=== PATIENT | male | born 1970 ===

== ENCOUNTER 2020-05-16 00:01 | Emergency (ER) | payer SELFPAY ==
[~2020-05-16] VITALS: Ht 152.4 cm; Wt 70.0 kg
[2020-05-16] MEDS ORDERED: ONDANSETRON HCL 4MG/2ML INJ IV STA (00:43)
[2020-05-16] MEDS ORDERED: VISCOUS LIDOCAINE 2% 15 ML UDC PO STA (00:43)
[2020-05-16] MEDS ORDERED: MAGNESIUM/ALUMINUM HYDROXIDE/SIMETHICONE 30ML UDC PO STA (00:43)
[2020-05-16] MEDS ORDERED: SODIUM CHLORIDE 0.9% 1,000 ML IV ONE (00:45)
[2020-05-16 00:53] LABS: BASOPHILS % 3.9 % (0.0-2.0); EOSINOPHILS % 5.8 % (0.0-5.0); HEMATOCRIT. 39.9 % (42.0-52.0); HEMOGLOBIN. 13.5 g/dL (14.0-18.0); LYMPHOCYTES % 22.1 % (20.0-50.0); MEAN CORPUSCULAR HEMOGLOBIN 30.1 pg (28.0-32.0); MEAN CORPUSCULAR VOLUME 88.8 fL (80.0-94.0); MONOCYTES % 10.7 % (2.0-8.0); NEUTROPHILS % 57.5 % (40.0-76.0); PLATELET 247 x1000/uL (130-400); RED BLOOD CELL COUNT 4.49 mill/uL (4.7-6.1); RED CELL DISTRIBUTION WIDTH 13.9 % (11.6-14.6)
[2020-05-16 00:59] LABS: PROTHROMBIN TIME 10.3 sec (9.6-11.0)
[2020-05-16 01:05] LABS: CHLORIDE 95 mEq/L (98-107)
[2020-05-16 01:07] LABS: CLARITY URINE CLEAR (CLEAR); COLOR URINE YELLOW (YELLOW); KETONES URINE 1+ (NEGATIVE); LEUKOCYTE ESTERASE URINE NEGATIVE (NEGATIVE); NITRITE URINE NEGATIVE (NEGATIVE); OCCULT BLOOD URINE NEGATIVE (NEGATIVE); PH URINE >=9.0 (4.5-8.0); PROTEIN URINE NEGATIVE (NEGATIVE); UROBILINOGEN URINE 0.2 E.U./dL (0.2-1.0)
[2020-05-16] MEDS ORDERED: MORPHINE SULFATE 4 MG/ML CPJ (NOT FOR IM USE) IV ONE (02:30)
[2020-05-16] MEDS: MORPHINE SULFATE 4 MG/ML CPJ (NOT FOR IM USE) IV ONE ×2 (04:17→04:19)
[2020-05-16 04:19] VITALS: BP 140/84
== END 2020-05-16 04:48 | disposition home or self-care (01) ==
LOC: ER 00:01
DX: R10.13 Epigastric pain (principal); R11.0 Nausea; R19.7 Diarrhea, unspecified; E11.9 Type 2 diabetes mellitus without complications
CPT/HCPCS: 36415; 71045; 80053; 81003; 83605; 83690; 85025; 85610; 93005; 96374; 96375; 96376; 99285; J2270; J2405; J7030